=== PATIENT | male | born 1975 | race Two or more races ===

== ENCOUNTER 2024-01-29 04:58 | Day surgery (SDC) | payer OTHER ==
[2024-01-26 11:22] VITALS: BMI 30.4
[2024-01-29 08:48] VITALS: TEMP 97.8
[2024-01-29 09:15] VITALS: RESP 18
[2024-01-29 09:27] VITALS: BP 116/76; PULSE 67
== END 2024-01-29 09:22 | disposition home or self-care (01) ==
LOC: JASU-ENDO 04:58
PROVIDERS: ATTEND Internal Medicine Gastroenterology
PROC: 0DBP8ZX Excision of Rectum, Via Natural or Artificial Opening Endoscopic, Diagnostic (ICD-10-PCS; principal; 2024-01-29 08:00)
DX: Z12.11 Encounter for screening for malignant neoplasm of colon (principal); K62.89 Other specified diseases of anus and rectum; K63.5 Polyp of colon
CPT/HCPCS: 88305-TC